=== PATIENT | male | born 1960 | race Caucasian/White ===

== ENCOUNTER → 2019-12-19 14:17 | Outpatient (CLI) | payer BC, SELFPAY ==
--- NOTE | ~2019-12-19 | XR_ITS ---
XR hip BI 2V w AP pelvis 12/19/2019 15:41 Indication: Rheumatoid arthritis Procedure: 3 views of each hip including AP pelvis Comparison: 06/14/2018 Findings: Pelvic rings are intact. Mild osteoarthritis of the left hip. No fracture, subluxation or d islocation. Sacral foramen are symmetric. No significant soft tissue abnormality. No radiopaque forei gn bodies. Impression: 1: Mild osteoarthritis of the left hip. Reviewed, dictated and finalized at location A. RVISOR STAGE CARPENTRY Impression: 1: Mild osteoarthritis of the left hip.
--- NOTE | ~2019-12-19 | XR_ITS ---
XR foot RT 2V, XR foot LT 2V 12/19/2019 15:41 Indication: Rheumatoid arthritis Procedure: 2 views each foot Comparison: No prior studies for comparison. Findings: There is a prominent degenerative calcaneal enthesophyte on the right at the plantar surfac e. There are degenerative changes of the right tibiotalar joint. No acute fracture or traumatic malal ignment. No erosive changes are identified. Lisfranc joint intact bilaterally. Impression: 1: Mild osteoarthritis of the right tibiotalar joint. 2: Prominent right plantar calcaneal enthesophyte. Reviewed, dictated and finalized at location A. UITING SPECIALIST Impression: 1: Mild osteoarthritis of the right tibiotalar joint. 2: Prominent right plantar calcaneal enthesophyte. Impression: 1: Mild osteoarthritis of the right tibiotalar joint. 2: Prominent right plantar calcaneal enthesophyte.
--- NOTE | ~2019-12-19 | XR_ITS ---
EXAMINATION: XR hand BI arthritis min 3V DATE: 12/19/2019 15:41 INDICATION: Rheumatoid arthritis. TECHNIQUE: 4 views of the right hand and 4 views of the left hand on a total of 7 radiographs were ob tained. COMPARISON: Left and right hand radiographs 06/14/2018 FINDINGS: RIGHT HAND: Bone alignment is normal. No acute fracture. There is mild osteoarthritis of triscaphe cole int and first carpometacarpal joint. There is an old healed fracture deformity of fifth metacarpal. T here is moderate osteoarthritis of third metacarpophalangeal joint and mild osteoarthritis of first, second, and fourth metacarpophalangeal joints. There is mild osteoarthritis of all of the interphalan geal joints. LEFT HAND: Bone alignment is normal. No fracture. There is mild osteoarthritis of first carpometacarp al joint and first metacarpophalangeal joint. There is moderate osteoarthritis of third metacarpophal angeal joint and mild osteoarthritis of fourth metacarpophalangeal joint. There is mild osteoarthriti s of most of the interphalangeal joints. There is moderate osteoarthritis of third distal interphalan geal joint. IMPRESSION: 1. Polyarticular osteoarthritis. No evidence of inflammatory arthropathy. Reviewed, dictated and finalized at location A. ICAL CARE PHYSICIAN
--- NOTE | ~2019-12-19 | XR_ITS ---
XR knee RT min 4V 12/19/2019 15:41 Indication: Rheumatoid arthritis Procedure: 4 views right knee Comparison: 06/14/2018 Findings: There is tricompartment osteoarthritis of the right knee, most advanced in the patellofemor al compartment. No erosive changes. No fracture or traumatic malalignment. No significant joint effus ion. Impression: 1: Mild-moderate tricompartment osteoarthritis of the right knee. Reviewed, dictated and finalized at location A. HER FINISHER Impression: 1: Mild-moderate tricompartment osteoarthritis of the right knee.
--- NOTE | ~2019-12-19 | XR_ITS ---
XR knee LT min 4V 12/19/2019 15:41 Indication: Rheumatoid arthritis Procedure: 4 views left knee Comparison: 06/14/2018 Findings: There is severe tricompartment osteoarthritis of the left knee, most advanced in the medial compartment. No acute fracture or traumatic malalignment. No significant change. Small joint effusio n. Impression: 1: Stable severe tricompartment osteoarthritis of the left knee. Reviewed, dictated and finalized at location A. N OUT DRILLER HELPER Impression: 1: Stable severe tricompartment osteoarthritis of the left knee.
== END ==
PROVIDERS: PCP Internal Medicine; Visit Provider Internal Medicine
DX: M05.79 Rheumatoid arthritis with rheumatoid factor of multiple sites without organ or systems involvement (principal); M19.041 Primary osteoarthritis, right hand; M19.071 Primary osteoarthritis, right ankle and foot; M77.31 Calcaneal spur, right foot; M17.0 Bilateral primary osteoarthritis of knee; M16.12 Unilateral primary osteoarthritis, left hip
CPT/HCPCS: 73130; 73521; 73564; 73620

== ENCOUNTER 2022-04-19 14:13 | Outpatient (CLI) | payer OTHER, SELFPAY ==
--- NOTE | ~2022-04-19 | XR_ITS ---
EXAM: XR knee RT 3V, XR knee LT 3V DATE: 04/19/2022 14:41 HISTORY: PRIMARY OSTEOARTHRITIS OF BOTH KNEES . COMPARISON: None available. FINDINGS: Normal mineralization. Moderate right and severe left medial joint space narrowing. Modera te tricompartmental osteophytosis, most severe in the medial and patellofemoral compartments of the l eft knee. Loss of valgus alignment, worse on the left. Small volume right and moderate volume left cole int fluid. Vascular calcifications. IMPRESSION: Bilateral tricompartmental knee osteoarthritis, severe in the left knee and moderate in t he right knee. Moderate left knee joint effusion. Small right knee joint effusion. Reviewed, dictated and finalized at location K. IMPRESSION: Bilateral tricompartmental knee osteoarthritis, severe in the left knee and moderate in the right knee. Moderate left knee joint effusion. Small r ight knee joint effusion.
== END 2022-04-19 14:14 | disposition home or self-care (01) ==
PROVIDERS: PCP Physician Assistant; Visit Provider Internal Medicine
DX: M17.0 Bilateral primary osteoarthritis of knee (principal); M25.462 Effusion, left knee; M25.461 Effusion, right knee
CPT/HCPCS: 73562

== ENCOUNTER 2022-07-23 01:26 | Day surgery (SDC) | payer OTHER, SELFPAY ==
[2022-07-07 14:56] VITALS: BMI 40.4
--- NOTE | 2022-07-22 16:27 | PM.HPGS ---
History of Present Illness History of Present Illness Consent: Risks, benefits, and alternatives have been discussed and questions answered. Patient agrees to proceed with procedure. Chief complaint: positive cologuard Narrative: Todd Gould is a 61 year old male referred for colon cancer screening. He performed a Cologuard screening procedure which was positive Review of Systems Review of Systems: All systems reviewed & are unremarkable except as noted in HPI and below PMFSH Past Medical History Medical History Bilateral hand pain Diabetes Generalized osteoarthritis of multiple sites Rheumatoid arthritis with rheumatoid factor of multiple sites without organ or systems involvement (~2013) Thyroid disorder Vitamin D deficiency Family History Family History Father Family history of rheumatoid arthritis Social History Social History Smoking status: Former smoker Tobacco type: e-cigarettes/vaping Second hand tobacco smoke exposure: No Smoking end date: 10/31/12 Additional smoking assessment comments: quit cigarettes 8 years ago Alcohol intake: never Substance use: never Meds Home Medications and Allergies Home Medications Medication Instructions Recorded Confirmed Type sildenafil 100 mg tablet 100 mg PO DAILY PRN sexual 12/12/20 07/23/22 Rx activity #6 tabs cholecalciferol (vitamin D3) 50 50 mcg PO DAILY 12/19/20 07/23/22 History mcg (2,000 unit) capsule empagliflozin 25 mg tablet 25 mg PO DAILY #30 tabs 06/22/21 07/23/22 Rx (Jardiance) hydroxychloroquine 200 mg tablet 400 mg PO DAILY #60 tabs 08/25/21 07/23/22 Rx (Plaquenil) folic acid 1 mg tablet 1 mg PO DAILY #90 tabs 12/23/21 07/23/22 Rx methotrexate sodium 2.5 mg tablet See Rx Instructions .Route 03/26/22 07/23/22 Rx .COMPLEX #120 tabs glipizide 5 mg tablet 5 mg PO BID #180 tabs 05/13/22 07/23/22 Rx lisinopril 20 mg tablet 20 mg PO DAILY #90 tabs 05/19/22 07/23/22 Rx naproxen 500 mg tablet 500 mg PO BID #180 tabs 07/01/22 07/23/22 Rx levothyroxine 150 mcg tablet 150 mcg PO .COMPLEX #102 tabs 07/07/22 07/23/22 Rx metformin 500 mg tablet 1,000 mg PO BID #360 tabs 07/14/22 07/23/22 Rx Allergies Allergy/AdvReac Type Severity Reaction Status Date / Time celecoxib Allergy Unknown Rash Verified 07/23/22 08:17 leflunomide Allergy Unknown Diarrhea Verified 07/23/22 08:17 [id number] Reductase AdvReac Mild Muscle Pain Verified 07/23/22 08:17 Inhibitor Exam Const: General: alert Orientation/consciousness: patient oriented x3 Resp: Auscultation: clear to auscultation bilaterally Cardio: Rhythm: regular rhythm GI: GI Palp: Yes Soft to palpation and No Tenderness to palpation present (GI) Neuro: General: patient oriented x3 Assessment and Plan Assessment and plan (1) Colon cancer screening: Code(s): Z12.11 - Encounter for screening for malignant neoplasm of colon Status: Acute Assessment and Plan: Colonoscopy with possible biopsy or polypectomy or cautery or injection of substances.
[2022-07-23 08:21] VITALS: BP 138/75; PULSE 94; RESP 18; TEMP 36; O2SAT 99
[2022-07-23 08:26] LABS: Glucose Point of Care 251 mg/dl (65-105)
[2022-07-23] MEDS: LACTATED RINGERS 1,000 ML 150 ML IV CONT (08:32)
--- NOTE | 2022-07-23 08:44 | WPDANESEPPF ---
Anes - Initial Pre Proc Eval Procedure: Operation Date: 07/23/22 09:00 Proposed Procedures p Colonoscopy - Todd Arriaga MD Date/Time: 07/23/22 08:44 Surgeon: Todd Arriaga MD Pre Op Diagnosis: positive cologuard Patient Data Age: 61 Gender: M Height: 1.68 m Weight: 105.1 kg Last Vital Signs Temp 96.8 F L 07/23/22 08:21 Pulse 94 07/23/22 08:21 Resp 18 07/23/22 08:21 BP 138/75 07/23/22 08:21 Pulse Ox 99 07/23/22 08:21 O2 Del Method Room Air 07/23/22 08:21 Allergies Allergy/AdvReac Type Severity Reaction Status Date / Time celecoxib Allergy Unknown Rash Verified 07/23/22 08:17 leflunomide Allergy Unknown Diarrhea Verified 07/23/22 08:17 [id number] Reductase AdvReac Mild Muscle Pain Verified 07/23/22 08:17 Inhibitor Home Medications Medication Instructions Recorded Confirmed Type sildenafil 100 mg tablet 100 mg PO DAILY PRN sexual 12/12/20 07/23/22 Rx activity #6 tabs cholecalciferol (vitamin D3) 50 50 mcg PO DAILY 12/19/20 07/23/22 History mcg (2,000 unit) capsule empagliflozin 25 mg tablet 25 mg PO DAILY #30 tabs 06/22/21 07/23/22 Rx (Jardiance) hydroxychloroquine 200 mg tablet 400 mg PO DAILY #60 tabs 08/25/21 07/23/22 Rx (Plaquenil) folic acid 1 mg tablet 1 mg PO DAILY #90 tabs 12/23/21 07/23/22 Rx methotrexate sodium 2.5 mg tablet See Rx Instructions .Route 03/26/22 07/23/22 Rx .COMPLEX #120 tabs glipizide 5 mg tablet 5 mg PO BID #180 tabs 05/13/22 07/23/22 Rx lisinopril 20 mg tablet 20 mg PO DAILY #90 tabs 05/19/22 07/23/22 Rx naproxen 500 mg tablet 500 mg PO BID #180 tabs 07/01/22 07/23/22 Rx levothyroxine 150 mcg tablet 150 mcg PO .COMPLEX #102 tabs 07/07/22 07/23/22 Rx metformin 500 mg tablet 1,000 mg PO BID #360 tabs 07/14/22 07/23/22 Rx Laboratory Tests 07/23/22 08:14 POC Capillary Glucose 251 mg/dl H mg/dl (65-105) Patient hx anesthesia problems: none Family hx anesthesia problems: none Results Review: All pre-operative results and documents have been reviewed as part of the pre-operative evaluation. [facility] Past Medical History Medical History (Updated 07/22/22 @ 16:28 by Todd Arriaga MD) Bilateral hand pain Diabetes Generalized osteoarthritis of multiple sites Rheumatoid arthritis with rheumatoid factor of multiple sites without organ or systems involvement (~2013) Thyroid disorder Vitamin D deficiency Family History Family History Father Family history of rheumatoid arthritis Social History Social History Smoking status: Former smoker Tobacco type: e-cigarettes/vaping Second hand tobacco smoke exposure: No Smoking end date: 10/31/12 Additional smoking assessment comments: quit cigarettes 8 years ago Alcohol intake: never Substance use: never Anes - Eval Final PreProcedure Day of Procedure 07/23/22 08:44 Patient weight: obese Heart: regular rate and rhythm Lungs: clear to auscultation Airway: Mallampati scale class II Neurological: alert and oriented Last oral intake: >/= 8 hours ASA classification: III Emergent: no Anesthetic plan: proceed Anesthesia type and monitoring: general GIVS and standard monitoring Results Review: All pre-operative results and documents have been reviewed as part of the pre-operative evaluation. Informed Consent: The patient's anesthetic plan and its attendant risks and benefits were discussed with the patient/family/POA. Questions were solicited and answers provided to the satisfaction of the patient/family/POA.
[2022-07-23] MEDS: SIMETHICONE ORAL SUSPENSION 20 MG/0.3 ML 30 ML BOTTLE 0.6 ML IRRIGATION (09:05)
[2022-07-23 09:19] VITALS: BP 116/69; PULSE 77; RESP 17; O2SAT 98
[2022-07-23 09:29] VITALS: BP 128/79; PULSE 70; RESP 19; O2SAT 98
[2022-07-23 09:39] VITALS: BP 128/73; PULSE 72; RESP 20; O2SAT 98
== END 2022-07-23 09:42 | disposition home or self-care (01) ==
PROVIDERS: PCP Physician Assistant; Visit Provider Internal Medicine Gastroenterology
PROC: 0DJD8ZZ Inspection of Lower Intestinal Tract, Via Natural or Artificial Opening Endoscopic (ICD-10-PCS; CPT 45378; principal; 2022-07-23 09:00)
DX: Z12.11 Encounter for screening for malignant neoplasm of colon (principal); K62.1 Rectal polyp; D12.8 Benign neoplasm of rectum; D12.5 Benign neoplasm of sigmoid colon; K57.30 Diverticulosis of large intestine without perforation or abscess without bleeding; Z79.84 Long term (current) use of oral hypoglycemic drugs; E03.9 Hypothyroidism, unspecified; E11.9 Type 2 diabetes mellitus without complications; M19.90 Unspecified osteoarthritis, unspecified site; M06.9 Rheumatoid arthritis, unspecified; E55.9 Vitamin D deficiency, unspecified; E07.9 Disorder of thyroid, unspecified; Z87.891 Personal history of nicotine dependence; E66.9 Obesity, unspecified; Z68.37 Body mass index [BMI] 37.0-37.9, adult
CPT/HCPCS: 45385; 82948; 88305; J2704; J7120

== ENCOUNTER 2022-09-15 14:54 | Outpatient (CLI) | payer OTHER, SELFPAY ==
[2022-09-15 17:30] LABS: Free T4 Free Thyroxine 1.73 ng/mL (0.78-2.19)
== END 2022-09-15 14:55 | disposition home or self-care (01) ==
LOC: ANHWCLAB 14:55
PROVIDERS: PCP Physician Assistant; Visit Provider Nurse Practitioner Family
DX: E03.9 Hypothyroidism, unspecified (principal); E55.9 Vitamin D deficiency, unspecified; E11.9 Type 2 diabetes mellitus without complications; E66.9 Obesity, unspecified; Z72.0 Tobacco use
CPT/HCPCS: 36415; 84439; 84443

== ENCOUNTER 2022-12-14 15:20 | Outpatient (CLI) | payer OTHER, SELFPAY ==
[2022-12-14 18:26] LABS: Creatinine Urine 26.2 mg/dL
[2022-12-14 18:53] LABS: MALB Creatinine Ratio < 22.9 mg/g (0-30); Microalbumin Urine Random < 6.0 mg/L (0-16.7)
[2022-12-14 19:50] LABS: Free T4 Free Thyroxine 1.72 ng/mL (0.78-2.19); Vitamin D 25 Hydroxy 37.1 ng/mL
[2022-12-14 19:55] LABS: Anion Gap 10 mmol/L (8-16); Blood Urea Nitrogen 11 mg/dL (9-20); Calcium 9.6 mg/dL (8.4-10.2); Carbon Dioxide 27 mmol/L (22-30); Chloride 98 mmol/L (98-107); Estimated Glomerular Filt Rate > 60; Glucose 154 mg/dL (65-110); HDL Direct 43 mg/dL; Potassium 3.9 mmol/L (3.4-5.0); Sodium 135 mmol/L (137-145)
[2022-12-14 20:12] LABS: LDL Cholesterol Direct 132 mg/dL
== END 2022-12-14 15:21 | disposition home or self-care (01) ==
LOC: ANHWCLAB 15:21
PROVIDERS: PCP Physician Assistant; Visit Provider Internal Medicine Endocrinology, Diabetes & Metabolism
DX: E03.9 Hypothyroidism, unspecified (principal); E11.69 Type 2 diabetes mellitus with other specified complication; E55.9 Vitamin D deficiency, unspecified; E78.5 Hyperlipidemia, unspecified
CPT/HCPCS: 36415; 80048; 82043; 82306; 82607; 83718; 83721; 84439; 84443

== ENCOUNTER 2024-07-13 14:51 | Emergency (ER) | payer OTHER, SELFPAY ==
[2024-07-13 15:03] VITALS: BP 146/78; PULSE 83; RESP 15; TEMP 37.1; O2SAT 99
--- NOTE | 2024-07-13 15:25 | ED.URI ---
HPI - URI/Sore Throat General Chief Complaint: Upper Respiratory Infection Stated Complaint: throat iritation Time Seen by Provider: 07/13/24 15:17 Source: patient, RN notes reviewed and old records reviewed Mode of arrival: ambulatory Limitations: no limitations History of Present Illness HPI Narrative: 63 year old male who presents to [facility] with complaints of one month history of productive cough with expectoration of brownish to greenish mucous and also chest congestion and sore throat. Patient reports that he has also been having some diarrhea for which he has been taking Imodium, denies any blood note in stools. Patient reports that daughter was recently diagnosed with strep throat. atient does have Rheumatoid arthritis and is on methotrexate therapy. MD elicited complaint: cough and sore throat Pertinent past history: immunosuppression Onset (ago): month(s) (1) Pain scale (0-10): 5 Able to tolerate fluids by mouth: Yes Treatments prior to arrival: other (Mucinex and Imodium) Related Data Home Medications Medication Instructions Recorded Confirmed sulfasalazine 500 mg tablet 0.5 g PO DAILY 07/27/22 07/13/24 Allergies Allergy/AdvReac Type Severity Reaction Status Date / Time celecoxib Allergy Unknown Rash Verified 07/13/24 15:12 leflunomide Allergy Unknown Diarrhea Verified 07/13/24 15:12 [id number] Reductase AdvReac Mild Muscle Pain Verified 07/13/24 15:12 Inhibitor Review of Systems Review of Systems: CONSTITUTIONAL: Reports malaise, no chills, sweats, or fever. EYES: Denies visual changes, redness, or discharge. ENT: Reports rhinorrhea, congestion, no sinus pain, no otalgia and positive for sore throat. CARDIOVASCULAR: Denies chest pain, palpitations, or edema. RESPIRATORY: Reports productive cough.? Denies acute dyspnea. GASTROINTESTINAL: Denies abdominal pain, nausea, vomiting,positive for episodes of diarrhea SKIN: Denies rash or itching. MUSCULOSKELETAL: Denies myalgia. NEUROLOGIC: Denies headache. All systems reviewed & are unremarkable except as noted in HPI and below PMFSH Past Medical History Medical History (Updated 07/14/24 @ 18:23 by Madison Pressley NP) Bilateral hand pain Bilateral tinnitus Body mass index (BMI) greater than 35 (12/13/18) Decreased hearing of left ear Dependence on other enabling machines and devices Diabetes Essential (primary) hypertension Generalized osteoarthritis of multiple sites Male erectile dysfunction, unspecified Metabolic syndrome COLLIN on CPAP Polyosteoarthritis, unspecified Pure hyperglyceridemia Rheumatoid arthritis with rheumatoid factor of multiple sites without organ or systems involvement (~2013) Rheumatoid arthritis, unspecified Thyroid disorder Type 2 diabetes mellitus with hyperglycemia Vitamin D deficiency Surgical History Surgical History (Updated 07/14/24 @ 18:23 by Madison Pressley NP) History of plastic surgery for repair of facial fractures with metal Family History Family History Father Family history of rheumatoid arthritis Social History Social History Smoking status: Current every day smoker Tobacco type: e-cigarettes/vaping Second hand tobacco smoke exposure: No Smoking end date: 10/31/12 Additional smoking assessment comments: quit cigarettes 8 years ago Alcohol intake: never Substance use: never Lack of Transportation: No Current Housing: Decline to Answer Concerned About Future Housing: Decline to Answer Difficulty Paying Gas/Electric Bills: Decline to Answer Difficulty Paying for Meds: Decline to Answer Currently Unemployed: Decline to Answer Education: High School Diploma/GED Difficulty w/ Childcare or Family Care: Decline to Answer Comments At time of signature, agree with nursing past medical, surgical, social and family history. There is no rel
[2024-07-13 15:52] LABS: EDSTREPNEGPOS1 Negative (Negative)
== END 2024-07-13 15:57 | disposition home or self-care (01) ==
PROVIDERS: Emergency Provider Registered Nurse; PCP Internal Medicine
DX: J32.9 Chronic sinusitis, unspecified (principal); R05.9 Cough, unspecified; F17.290 Nicotine dependence, other tobacco product, uncomplicated; E11.9 Type 2 diabetes mellitus without complications; I10 Essential (primary) hypertension; G47.33 Obstructive sleep apnea (adult) (pediatric); E78.1 Pure hyperglyceridemia; M05.70 Rheumatoid arthritis with rheumatoid factor of unspecified site without organ or systems involvement
CPT/HCPCS: 87081; 87880; 99213; G0463